=== PATIENT | female | born 1990 | race African-American/Black ===

== ENCOUNTER 2019-08-24 14:48 | Emergency (ER) | payer SELFPAY ==
[~2019-08-24] VITALS: Ht 167.6 cm; Wt 90.9 kg
[2019-08-24 16:02] VITALS: BP 132/69
[2019-08-24 16:06] LABS: BILIRUBIN,URINE NEGATIVE (NEG); CLARITY,URINE CLEAR; COLOR,URINE YELLOW; NITRITE,URINE NEGATIVE (NEG); PROTEIN,URINE NEGATIVE (NEG-TRACE)
[2019-08-24 16:13] LABS: SQUAMOUS EPITHELIAL CELL,UR MANY /LPF
[2019-08-24 16:14] LABS: BACTERIA,URINE FEW /HPF (0-FEW); WBC,URINE OCC /HPF (0-4)
--- NOTE | 2019-08-24 16:38 | PHYS DOC ---
Past Medical History Past Medical History: No Pertinent History (KAROLYN VILLALOBOS APRN) Past Surgical History: No Surgical History (KAROLYN VILLALOBOS APRN) Smoking Status: Never Smoker Alcohol Use: None (KAROLYN VILLALOBOS APRN) Adult General Chief Complaint Chief Complaint: PAIN ON URINATION HPI HPI Patient is a 28 year old AA female who presents to the ER with complaints of dysuria and lower abdominal pain that began today. Pt states her LMP was on . She denies any hematuria, back pain, abdominal pain, nausea, vomiting, diarrhea, fever, vaginal bleeding, or abnormal vaginal discharge. PT is 4, para 4. She rates her pain with urination a 7/10 on the pain scale, she currently denies any pain. (KAROLYN VILLALOBOS APRN) Review of Systems Review of Systems Complete ROS is negative unless otherwise noted in HPI. (KAROLYN VILLALOBOS APRN) Allergies Allergies Allergies Coded Allergies Type Severity Reaction Last Updated Verified No Known Drug Allergies 08/24/19 No (EDIN DE DIOS MD) Physical Exam Physical Exam See Above Constitutional: Well developed, well nourished, no acute distress, non-toxic appearance, obese. [] HENT: Normocephalic, atraumatic, bilateral external ears normal, oropharynx mo ist, no oral exudates, nose normal. [] Eyes: PERRLA, EOMI, conjunctiva normal, no discharge. [] Neck: Normal range of motion, no stridor. [] Cardiovascular:Heart rate regular rhythm, no murmur [] Lungs & Thorax: Bilateral breath sounds clear to auscultation [] Abdomen: Bowel sounds normal, soft, no tenderness, no masses, no pulsatile masses. [] Skin: Warm, dry, no erythema, no rash. [] Back: No CVA tenderness. [] Extremities: No cyanosis, ROM intact Neurologic: Alert and oriented X 3, no focal deficits noted. [] Psychologic: Affect normal, judgement normal, mood normal. [] (KAROLYN VILLALOBOS APRN) Current Patient Data Vital Signs Vital Signs Date Time Temp Pulse Resp B/P (MAP) Pulse Ox O2 Delivery O2 Flow Rate FiO2 08/24/19 16:02 98.6 74 16 132/69 (90) 99 Room Air 98.6 (EDIN DE DIOS MD) Lab Values Laboratory Tests Test 08/24/19 15:50 08/24/19 15:52 Urine Collection Type Unknown Urine Color Yellow Urine Clarity Clear Urine pH 6.0 Urine Specific [place] >=1.030 Urine Protein Negative mg/dL (NEG-TRACE) Urine Glucose (UA) Negative mg/dL (NEG) Urine Ketones (Stick) Negative mg/dL (NEG) Urine Blood Negative (NEG) Urine Nitrite Negative (NEG) Urine Bilirubin Negative (NEG) Urine Urobilinogen Dipstick 1.0 mg/dL (0.2 mg/dL) Urine Leukocyte Esterase Negative (NEG) Urine RBC 3-5 /HPF (0-2) Urine WBC Occ /HPF (0-4) Urine Squamous Epithelial Cells Many /LPF Urine Bacteria Few /HPF (0-FEW) Urine Mucus Marked /LPF POC Urine HCG, Qualitative Hcg positive (Negative) (EDIN DE DIOS MD) EKG EKG [] (KAROLYN VILLALOBOS APRN) Radiology/Procedures Radiology/Procedures [] (KAROLYN VILLALOBOS APRN) Course & Med Decision Making Course & Med Decision Making Pertinent Labs and Imaging studies reviewed. (See chart for details) Patient is a 28-year-old female who presented to the emergency room with complaints of dysuria and lower abdominal pain. Her urine was not concerning for urinary tract infection, it was most likely contaminated. The patient's urine test was positive. The patient was informed of her an estimated due date of April 30, 2020 based off her last menstrual cycle. She is provided with Dr. Barrett's information and encouraged to follow-up with [facility]. Patient verbalized an understanding of home care, medications, follow-up, and return to ED instructions and was in agreement with the plan of care. [] (KAROLYN VILLALOBOS APRN) Course & Med Decision Making ( Staff Physician Addendum: I was working in the ER during the course of this patient's visit. I was available for consultation as needed, but I was not directly involved in the care of this patient. (EDIN DE DIOS MD) Dragon Disclaimer Dragon Disclaimer This electronic medical record was generated, in whole or in part, using a voice recognition dictation system. (KAROLYN VILLALOBOS APRN) Departure Departure Impression: Primary Impression: Disposition: 01 HOME, SELF-CARE Condition: STABLE Referrals: NO PCP (PCP) MARICHUY DURAN MD Patient Instructions: ABCs of Additional Instructions: Based off of your last menstrual cycle of 07/25/19 your due date is 04/30/20. Recommend that you take a vitamin daily. Follow up with Dr. Barrett's office, call in the morning to establish care, return to the ER if symptoms worsen. Problem Qualifiers Primary Impression: Weeks of gestation: less than 8 weeks Qualified Codes: Z3A.01 - Less than 8 weeks gestation of KAROLYN VILLALOBOS APRN Aug 24, 2019 16:38 EDIN DE DIOS MD Aug 25, 2019 06:16
== END 2019-08-24 16:47 | disposition home or self-care (01) ==
LOC: ER 14:48
DX: O26.891 Other specified pregnancy related conditions, first trimester (principal); R10.30 Lower abdominal pain, unspecified; R30.0 Dysuria; Z3A.01 Less than 8 weeks gestation of pregnancy
CPT/HCPCS: 81001; 81025; 99283

== ENCOUNTER 2021-08-29 12:07 | Emergency (ER) | payer MEDICAID ==
[~2021-08-29] VITALS: Ht 167.6 cm; Wt 99.9 kg
[2021-08-29 13:14] LABS: BILIRUBIN,URINE NEGATIVE (NEG); CLARITY,URINE CLEAR; COLOR,URINE YELLOW
[2021-08-29 13:15] LABS: NITRITE,URINE NEGATIVE (NEG); PROTEIN,URINE NEGATIVE (NEG-TRACE)
[2021-08-29 13:18] LABS: BACTERIA,URINE FEW /HPF (0-FEW); RBC,URINE OCC /HPF (0-2); WBC,URINE 0 /HPF (0-4)
[2021-08-29 13:40] LABS: BASO % 0 % (0-3); EOS # 0.1 x10^3/uL (0.0-0.7); EOS % 1 % (0-3); HEMATOCRIT 33.9 % (36.0-47.0); LYMPH # 1.9 x10^3/uL (1.0-4.8); LYMPH % 21 % (24-48); MEAN CORPUSCULAR HEMOGLOBIN 29 pg (25-35); MEAN CORPUSCULAR HGB CONC 33 g/dL (31-37); MEAN CORPUSCULAR VOLUME 89 fL (79-100); MONO % 11 % (0-9); NEUT % 67 % (31-73); PLATELET COUNT 251 x10^3/uL (140-400); RED BLOOD COUNT 3.81 x10^6/uL (3.50-5.40); RED CELL DISTRIBUTION WIDTH 12.4 % (11.5-14.5); WHITE BLOOD COUNT 9.1 x10^3/uL (4.0-11.0)
[2021-08-29 13:48] LABS: CALCIUM 7.8 mg/dL (8.5-10.1); CREATININE 0.7 mg/dL (0.6-1.0); GFR 118.1; POTASSIUM 3.8 mmol/L (3.5-5.1)
[2021-08-29 14:31] VITALS: BP 128/74
--- NOTE | 2021-08-29 14:38 | RAD ---
Study: US OB >14 WEEKS Clinical Indication: Vaginal bleeding. Triplet . Only one heartbeat. 15 weeks gestational ag e. Comparison: None. Technique: Multiple grayscale images, color Doppler, and M-mode images of the uterus are obtained. Findings: The uterus contains 2 gestational sacs. At the lower uterine segment there is a relatively smaller ge stational sac which does not contain a pole or placenta. Within the more fundally positioned ge stational sac, there is a single fetus in transverse position. The placenta is anterior in location w ithout evidence of placenta previa. The amount of amniotic fluid appears appropriate. Cervical length is 5.8 cm and is closed. Biometrical data: BPD = 2.97 cm for 15 weeks 3 days. HC = 11.23 cm for 15 weeks 3 days. AC = 8.90 cm for 15 weeks 1 days. FL = 1.57 cm for 14 weeks 4 days. CI ratio = 82.4. HC/AC ratio = 1.26. Overall, the estimated sonographic gestational age is 15 weeks 1 day for an estimated date of deliver y of 02/19/2022. The clinical estimated date of delivery is 02/21/2022. A 4 chamber heart is identified with positive cardiac activity. The estimated heart rate is 139 beats per minute. A full anatomic survey was not performed. No gross anatomic abnormalities are identified. Impression: There are 2 intrauterine gestational sacs, however the inferior most sac is empty and the more superi or sac contains a single live intrauterine gestation with estimated sonographic gestational age of 15 weeks 1 day corresponding to an estimated delivery date of 02/19/2022. Clinically estimated delivery date of 02/21/2022. Recommend full anatomic survey 20 weeks gestational age. Electronically signed by: Anderson Gibson MD (08/29/2021 2:36 PM) [id number]
--- NOTE | 2021-08-29 14:49 | PHYS DOC ---
Past Medical History Past Medical History: No Pertinent History Past Surgical History: No Surgical History Additional Past Surgical Histo: LEAD PROCEDURE Smoking Status: Never Smoker Alcohol Use: None General Adult EDM: Chief Complaint: VAGINAL BLEEDING HPI: HPI: Patient is a 30-year-old female who presents to the emergency department complaining of vaginal bleeding since last Saturday night. Patient reports pain pink tinge on the paper after she urinates. Denies vaginal cramping. Patient reports she is a high risk originally holding triplets however 2 of them had since, patient reports she is about 15 weeks , last menstrual cycle was 17 May with normal duration of flow. Patient is a G9, P4. First with twins ended in spontaneous at 19 weeks gestation, second without problems born per , third and fourth pregnancies without problems both vaginal deliveries, fifth ended in therapeutic , 6 full gestation with vaginal delivery, seventh therapeutic , eighth spontaneous miscarriage at 4 weeks gestation. Patient reports she only takes vitamins and Tylenol. Patient reports having a high school history teacher follow-up at OB this coming Saturday. Patient denies recent fever or chills, abdominal discomfort, chest pain, increased urinary frequency, nausea, vomiting, diarrhea, denies urinary retention, denies seeing blood in her urine or in her stool. Patient denies heart palpitations, shortness of breath, chest or nasal congestion. Patient denies other physical complaints or physical concerns. Review of Systems: Review of Systems: 14 body systems of review of systems have been reviewed. See HPI for pertinent positives and negative responses, otherwise all other systems are negative, nonpertinent or noncontributory. Constitutional: Negative except as outlined in HPI above. Skin: Negative except as outlined in HPI above. Eyes: Negative except as outlined in HPI above. HENT: Negative except as outlined in HPI above. Respiratory: Negative except as outlined in HPI above. Cardiovascular: Negative except as outlined in HPI above. GI: Negative except as outlined in HPI above. : Negative except as outlined in HPI above. Musculoskeletal: Negative except as outlined in HPI above. Integument: Negative except as outlined in HPI above. Neurologic: Negative except as outlined in HPI above. Endocrine: Negative except as outlined in HPI above. Lymphatic: Negative except as outlined in HPI above. Psychiatric: Negative except as outlined in HPI above. Heart Score: C/O Chest Pain: No Risk Factors: Risk Factors: DM, Current or recent (<one month) smoker, HTN, HLP, family history of CAD, obesity. Risk Scores: Score 0 - 3: 2.5% MACE over next 6 weeks - Discharge Home Score 4 - 6: 20.3% MACE over next 6 weeks - Admit for Clinical Observation Score 7 - 10: 72.7% MACE over next 6 weeks - Early Invasive Strategies Allergies: Allergies: Allergies Coded Allergies Type Severity Reaction Last Updated Verified No Known Drug Allergies 08/24/19 No Physical Exam: PE: Constitutional: Well developed, well nourished, no acute distress, non-toxic appearance. 30-year-old female in no apparent distress. HENT: Normocephalic, atraumatic. Eyes: Conjunctiva normal, no discharge. Neck: Normal range of motion. Cardiovascular: Distal cap refill less than 2 seconds, no cyanosis appreciated. Lungs & Thorax: Patient is in no respiratory distress, no adventitious lung sounds appreciated. Abdomen: Bowel sounds normal, soft, no tenderness, no masses, no pulsatile masses. No bruising or skin discoloration of the abdomen. Skin: Warm, dry, no erythema, no rash. Back: No tenderness, no CVA tenderness. Extremities: No tenderness, no cyanosis, no clubbing, ROM intact, no edema. Neurologic: Alert and oriented X 3, normal motor function, normal sensory function, no focal deficits noted. Psychologic: Affect normal, judgement normal, mood normal. : Pelvic examination performed with ED nurse at bedside for pediatric nurse practitioner, external vaginal structures are without rashes or lesions, there is no discharge from vagina externally, speculum exam reveals cervical os is closed without bleeding or oozing blood, wet prep and GC/chlamydia cultures were obtained. The vaginal hill and cervix and adjacent structures are pink, not erythematous. Patient tolerated well. Current Patient Data: Labs: Laboratory Tests Test 08/29/21 12:16 08/29/21 12:37 08/29/21 13:00 Urine Collection Type Void Urine Color Yellow Urine Clarity Clear Urine pH 7.0 (<5.0-8.0) Urine Specific [place] 1.025 (1.000-1.030) Urine Protein Negative mg/dL (NEG-TRACE) Urine Glucose (UA) Negative mg/dL (NEG) Urine Ketones (Stick) Negative mg/dL (NEG) Urine Blood Negative (NEG) Urine Nitrite Negative (NEG) Urine Bilirubin Negative (NEG) Urine Urobilinogen Dipstick 1.0 mg/dL (0.2 mg/dL) Urine Leukocyte Esterase Negative (NEG) Urine RBC Occ /HPF (0-2) Urine WBC 0 /HPF (0-4) Urine Squamous Epithelial Cells Few /LPF Urine Bacteria Few /HPF (0-FEW) Urine Mucus Slight /LPF POC Urine HCG, Qualitative Hcg positive (Negative) White Blood Count 9.1 x10^3/uL (4.0-11.0) Red Blood Count 3.81 x10^6/uL (3.50-5.40) Hemoglobin 11.0 g/dL (12.0-15.5) L Hematocrit 33.9 % (36.0-47.0) L Mean Corpuscular Volume 89 fL (79-100) Mean Corpuscular Hemoglobin 29 pg (25-35) Mean Corpuscular Hemoglobin Concent 33 g/dL (31-37) Red Cell Distribution Width 12.4 % (11.5-14.5) Platelet Count 251 x10^3/uL (140-400) Neutrophils (%) (Auto) 67 % (31-73) Lymphocytes (%) (Auto) 21 % (24-48) L Monocytes (%) (Auto) 11 % (0-9) H Eosinophils (%) (Auto) 1 % (0-3) Basophils (%) (Auto) 0 % (0-3) Neutrophils # (Auto) 6.0 x10^3/uL (1.8-7.7) Lymphocytes # (Auto) 1.9 x10^3/uL (1.0-4.8) Monocytes # (Auto) 1.0 x10^3/uL (0.0-1.1) Eosinophils # (Auto) 0.1 x10^3/uL (0.0-0.7) Basophils # (Auto) 0.0 x10^3/uL (0.0-0.2) Maternal Serum HCG Beta Subunit 9242 mIU/mL (0-5) H Sodium Level 138 mmol/L (136-145) Potassium Level 3.8 mmol/L (3.5-5.1) Chloride Level 104 mmol/L (98-107) Carbon Dioxide Level 26 mmol/L (21-32) Anion Gap 8 (6-14) Blood Urea Nitrogen 7 mg/dL (7-20) Creatinine 0.7 mg/dL (0.6-1.0) Estimated GFR (Cockcroft-Gault) 118.1 Glucose Level 88 mg/dL (70-99) Calcium Level 7.8 mg/dL (8.5-10.1) L Laboratory Tests 08/29/21 13:00 Laboratory Tests 08/29/21 13:00 Vital Signs: Vital Signs Date Time Temp Pulse Resp B/P (MAP) Pulse Ox O2 Delivery O2 Flow Rate FiO2 08/29/21 12:15 97.7 83 20 136/75 (95) 94 Room Air 97.7 EKG: EKG: [] Radiology/Procedures: Radiology/Procedures: REASON: 15 weeks with triplets, reports only one heartbeat, vaginal bleedi PROCEDURE: PREG MORE THAN OR EQ TO 14 WKS Study: US OB >14 WEEKS Clinical Indication: Vaginal bleeding. Triplet . Only one heartbeat. 15 weeks gestational age. Comparison: None. Technique: Multiple grayscale images, color Doppler, and M-mode images of the uterus are obtained. Findings: The uterus contains 2 gestational sacs. At the lower uterine segment there is a relatively smaller gestational sac which does not contain a pole or placenta. Within the more fundally positioned gestational sac, there is a single fetus in transverse position. The placenta is anterior in location without evidence of placenta previa. The amount of amniotic fluid appears appropriate. Cervical length is 5.8 cm and is closed. Biometrical data: BPD = 2.97 cm for 15 weeks 3 days. HC = 11.23 cm for 15 weeks 3 days. AC = 8.90 cm for 15 weeks 1 days. FL = 1.57 cm for 14 weeks 4 days. CI ratio = 82.4. HC/AC ratio = 1.26. Overall, the estimated sonographic gestational age is 15 weeks 1 day for an estimated date of delivery of 02/19/2022. The clinical estimated date of delivery is 02/21/2022. A 4 chamber heart is identified with positive cardiac activity. The estimated heart rate is 139 beats per minute. A full anatomic survey was not performed. No gross anatomic abnormalities are identified. Impression: There are 2 intrauterine gestational sacs, however the inferior most sac is empty and the more superior sac contains a single live intrauterine gestation with estimated sonographic gestational age of 15 weeks 1 day corresponding to an estimated delivery date of 02/19/2022. Clinically estimated delivery date of 02/21/2022. Recommend full anatomic survey 20 weeks gestational age. Electronically signed by: Anderson Greer MD (08/29/2021 2:36 PM) [id number] DICTATED and SIGNED BY: ANDERSON GREER MD DATE: 08/29/21 [id number] 0 Course & Med Decision Making: Course & Med Decision Making Pertinent Labs and Imaging studies reviewed. (See chart for details) 30-year-old female, vital signs reviewed, resents emerged from concerning vaginal bleeding with . Physical examination is unremarkable, pelvic examination is unremarkable, will order CBC, CMP, transvaginal greater than 14 weeks OB study, type and Rh, hCG quant. Urinalysis assay, urine test. Patient's urine is not infected, the patient is per urine test, OB study reveals 15-week single IUP with heart rate 138, there is a gestational sac that is empty, this is consistent with patient's report of triplets and losing 2 of them. There is no active vaginal bleeding, the patient denies abdominal or pelvic discomfort or cramping, discussed with patient [facility] follow-up high risk OB care keep all appointments, return to ER precautions and concerns were reviewed, pelvic rest was reviewed, the patient's wet prep is positive for bacterial vaginosis, low concern for gonorrhea/chlamydia infection, will treat BV with Flagyl regimen, discussed findings with patient, patient gave verbal understanding of and is amenable to ED discharge planning. Dragon Disclaimer: Dragphilip Disclaimer: This electronic medical record was generated, in whole or in part, using a voice recognition dictation system. Departure Departure Impression: Primary Impression: Threatened miscarriage in early Disposition: HOME / SELF CARE / HOMELESS Condition: GOOD Referrals: NO PCP (PCP) Patient Instructions: Threatened Miscarriage, Vaginal Bleeding During , Second Trimester Additional Instructions: You were seen today in the emergency department for vaginal bleeding during . Your sonogram showed a healthy 5-week 1 day estimated gestational age intrauterine with a heart rate of 139. There were no other abnormalities noted, except for a additional gestational sac that is empty. You had reported you originally had triplets and have lost 2 of them. Your pelvic exam did not show any concerning findings of vaginal bleeding, your urine is not infected, as we discussed please do not have sex or insert any objects into your vagina, bedrest until seen by your high school history teacher/GYN at the OB clinic this coming week, I did send cultures from your pelvic examination to the lab, if any come back positive or concerning you will be contacted and treated appropriately, they will reach you at the number you left with the admitting clerks. Please keep all further high school history teacher appointments, return to the emergency department for worsening symptoms or other concerns. Thank you for visiting our Emergency Department. It was a pleasure taking care of you today in the emergency department and we appreciate you trusting us with your care. If any additional problems come up don't hesitate to return to visit us. Please follow up with your primary care provider so they can plan additional care if needed and know about the problem that you had. If symptoms worsen come back to the Emergency Department. Any concerning symptoms that start such as chest pain, shortness of air, weakness or numbness on one side of the body, running high fevers or any other concerning symptoms return to the ER. EMERGENCY DEPARTMENT GENERAL DISCHARGE INSTRUCTIONS Thank you for coming to [facility] Emergency Department (ED) today and trusting us with you care. We trust that you had a positive experience in our Emergency Department. If you wish to speak to the department management, you may call the Director at [phone]. YOUR FOLLOW UP INSTRUCTIONS ARE FOLLOWS: 1. Do you have a private Doctor? If you do not have a private doctor, please ask for a resource list of physicians or clinics that may be able to assist you with follow up care. 2. The Emergency Physicain has interpreted your x-rays. The X-Ray specialist will also review them. If there is a change in the findings, you will be notified in 48 hours when at all possible. 3. A lab test or culture has been done, your results will be reviewed and you will be notified if you need a change in treatment. ADDITIONAL INSTRUCTIONS AND INFORMATION: 1. Your care today has been supervised by a physician who is specially trained in emergency care. Many problems require more than one evaluation for a complete diagnosis and treatment. We recommend that you schedule your follow up appointment as recommended to ensure complete treatment of you illness or injury. If you are unable to obtain follow up care and continue to have a problem, or if your condition worsens, we recommend that you return to the ED. 2. We are not able to safely determine your condition over the phone nor are we able to give sound medical advice over the phone. For these safety reasons, if you call for medical advice we will ask you to come to the ED for further evaluation. 3. If you have any questions regarding these discharge instructions please call the ED at [phone]. SAFETY INFORMATION: In the interest of safety, wellness, and injury prevention; we encourage you to wear your sealbelt, if you smoke; quite smoking, and we encourage family to use a protective helmet for bicycling and other sporting events that present an increased risk for head injury. IF YOUR SYMPTOMS WORSEN OR NEW SYMPTOMS DEVELOP, OR YOU HAVE CONCERNS ABOUT YOUR CONDITION; OR IF YOUR CONDITION WORSENS WHILE YOU ARE WAITING FOR YOUR FOLLOW UP APPOINTMENT; EITHER CONTACT YOUR PRIMARY CARE DOCTOR, THE PHYSICIAN WHOSE NAME AND NUMBER YOU WERE GIVEN, OR RETURN TO THE ED IMMEDIATELY. Scripts Metronidazole (METRONIDAZOLE) 500 Mg Tablet 1 TAB PO BID for bacterial vaginosis for 7 Days, #14 TAB 0 Refills Prov: JAZIEL MCCLENDON APRN 08/29/21 JAZIEL MCCLENDON APRN Aug 29, 2021 14:49
[2021-08-29] MEDS ORDERED: METR-34 PO (16:34)
[2021-08-30 16:12] LABS: GC PROBE Negative (Negative)
== END 2021-08-29 15:19 | disposition home or self-care (01) ==
LOC: ER 12:07
DX: O20.0 Threatened abortion (principal); Z3A.20 20 weeks gestation of pregnancy
CPT/HCPCS: 36415; 76805; 80048; 81001; 81025; 84702; 85025; 86900; 86901; 87491; 87591; 99284; Q0111

== ENCOUNTER 2021-09-02 11:34 | Emergency (ER) | payer MEDICAID ==
[~2021-09-02] VITALS: Ht 167.6 cm; Wt 100.0 kg
[~2021-09-02 11:34] MED LIST: METR-34 PO
[2021-09-02 12:08] VITALS: BP 129/58
--- NOTE | 2021-09-02 14:53 | PHYS DOC ---
Past Medical History Past Medical History: No Pertinent History Past Surgical History: No Surgical History Additional Past Surgical Histo: LEAD PROCEDURE Smoking Status: Never Smoker Alcohol Use: None Adult General Chief Complaint Chief Complaint: VAGINAL BLEEDING HPI HPI The patient is a 30yo G9, P4 at approximately 15 weeks gestational age by formal ultrasound dating. Her began as natural triplets but 2 of the fetuses, which shared a gestational sac, were found not to have developed. She is currently following with high school history teacher at [facility]. Patient was here about 4 days ago for evaluation of scant vaginal spotting of . Blood type is A positive. Evaluation was reassuring and a single live was seen in the uterus with appropriate heart rate, along with empty gestational sac which is likely the remnant of the other fetuses. Ms. Ivory presents for evaluation of continued scant vaginal bleeding; she states she got up from bed this morning and went to the restroom and while standing in the bathroom had a gush of blood. This stopped and she has since not even used a full pad in the several hours since she woke up. She denies any associated abdominal pain. She denies any lightheadedness. She denies any shortness of breath or chest pain. She is in no acute distress and vital signs are appropriate here. Review of Systems Review of Systems A 12 point review of systems was completed and was negative except where noted in HPI above. Allergies Allergies Allergies Coded Allergies Type Severity Reaction Last Updated Verified No Known Drug Allergies 08/24/19 No Physical Exam Physical Exam 30-year-old female appearing nontoxic and in no acute distress. Head is normocephalic and atraumatic. Neck is supple and nontender. Oropharynx is moist. Lungs are clear to auscultation at all stations. There is a normal S1 and S2 without rubs or gallops and capillary refill is appropriate, less than 2 seconds globally. Abdomen is soft, nontender nondistended. Skin is warm and dry without cyanosis, clubbing or edema. Psychiatrically, the patient demonstrates appropriate mood and affect and is alert. Current Patient Data Vital Signs Vital Signs Date Time Temp Pulse Resp B/P (MAP) Pulse Ox O2 Delivery O2 Flow Rate FiO2 09/02/21 12:08 97.9 84 16 129/58 (81) 98 Room Air 97.9 Lab Values Laboratory Tests Test 09/02/21 12:28 Hemoglobin 11.4 g/dL (12.0-15.5) L Maternal Serum HCG Beta Subunit 8319 mIU/mL (0-5) H Laboratory Tests 09/02/21 12:28 EKG EKG [] Radiology/Procedures Radiology/Procedures [] Course & Med Decision Making Course & Med Decision Making Hemoglobin actually improved versus a few days ago. Quantitative hCG has decreased marginally but it is difficult to know how to interpret this as far along in as the patient is. Patient is counseled that it is possible that she may be miscarrying but that additional time and follow-up with her director rehabilitation program after the weekend is needed to come to a definitive conclusion. She does not require RhoGam. Will discharge home with strict return precautions. Patient understands that if she feels worse instead of better, has worsening bleeding or develops other new symptoms of concern that she should return to the emergency department right away for reevaluation. All questions are answered. Dragon Disclaimer Dragon Disclaimer This electronic medical record was generated, in whole or in part, using a voice recognition dictation system. Departure Departure Impression: Primary Impression: Threatened miscarriage Disposition: 01 HOME / SELF CARE / HOMELESS Condition: STABLE Referrals: NO PCP (PCP) Patient Instructions: Vaginal Bleeding During , [id number] Additional Instructions: Follow-up very closely with your director rehabilitation program in the office in the next 1 to 2 days for a reevaluation of your symptoms and a discussion of next best steps in care. Drink plenty of fluids and get plenty of rest. You may take Tylenol as needed for any discomfort. Return to the emergency department right away for worsening symptoms including worsening bleeding (usually defined as involving 2 or more pads an hour for 3 or more hours in a row), or for any other new symptoms of concern. MARY MESA MD Sep 02, 2021 14:53
== END 2021-09-02 14:58 | disposition home or self-care (01) ==
LOC: ER 11:34
DX: O20.0 Threatened abortion (principal); Z3A.15 15 weeks gestation of pregnancy
CPT/HCPCS: 36415; 84702; 85018; 86850; 86900; 86901; 99283